=== PATIENT | female | born 1945 | race Caucasian/White ===

== ENCOUNTER 2018-05-11 11:10 | Emergency (ER) | payer MEDICARE, BC ==
[~2018-05-11] VITALS: Ht 152.4 cm; Wt 71.8 kg
[2018-05-11 11:10] VITALS: Ht 152.4 cm; Wt 71.8 kg
[~2018-05-11 11:10] MED LIST: LEVAQUIN500 MG PO; PRINIVIL20 MG PO; ZOCOR20 MG PO
[2018-05-11] MEDS ORDERED: COZAAR25 MG (11:19)
[2018-05-11] MEDS ORDERED: PROTONIX20 MG PO (11:19)
[2018-05-11] MEDS ORDERED: PLAVIX75 MG PO (11:19)
[2018-05-11] MEDS ORDERED: ASPIRIN81 MG PO (11:20)
[2018-05-11 11:43] LABS: BASOPHILS 0.5 % (0-2); EOSINOPHILS 2.1 % (0-7); HEMOGLOBIN 13.5 g/dL (12-16); IMMATURE GRANULOCYTES 0.2 % (0-5); LYMPHOCYTES 17.7 % (15-50); MCH 31.4 pg (26.0-34.0); MCHC 34.6 g/dL (31.0-37.0); MCV 90.7 fL (80.0-100.0); MEAN PLATELET VOLUME 9.8 fL (7.4-10.4); NEUTROPHILS 69.5 % (40-80); PLATELET COUNT 243 10x3/uL (130-400); RDW 12.2 % (11.5-14.5); WBC 5.8 10x3/uL (4.8-10.8)
[2018-05-11 11:51] LABS: APTT 53.4 SECONDS (22.8-39.4); INR 1.03 (0.85-1.17)
[2018-05-11 12:05] LABS: ALBUMIN 3.8 g/dL (3.4-5.0); ALKALINE PHOSPHATASE 82 U/L (46-116); ALT (SGPT) 23 U/L (10-68); BILIRUBIN - TOTAL 0.46 mg/dL (0.2-1.3); CALC OSMOLALITY 268 mosm/kg (275-300); CALCIUM 8.8 mg/dL (8.5-10.1); CHLORIDE - SERUM 98 mmol/L (98-107); CREATININE - SERUM 0.8 mg/dL (0.6-1.3); GLUCOSE 97 mg/dL (74-106); POTASSIUM - SERUM 3.7 mmol/L (3.5-5.1); PROTEIN - SERUM 7.6 g/dL (6.4-8.2); SODIUM 134 mmol/L (136-145); UREA NITROGEN 16 mg/dL (7-18); eGFR NON AFRICAN AMERICAN 74 mL/min (90-120)
[2018-05-11 12:06] LABS: CKMB 4.9 U/L (0.0-3.6); CREATINE KINASE 141 UL (21-215); MAGNESIUM - SERUM 1.9 mg/dL (1.8-2.4); TROPONIN-I < 0.017 ng/mL (0.000-0.060)
[2018-05-11 13:52] VITALS: BP 180/89
--- NOTE | 2018-05-14 11:18 | CN ---
PATIENT NAME:ESTER ANDREW MEDICAL RECORD: [id number] : 41 LOCATION:D.ER ADMIT DATE: ACCOUNT: [id number] CONSULTING PHYSICIAN: ANTONY BACA MD REFERRING PHYSICIAN: SHERRY LESTER MD DATE OF CONSULTATION: 05/11/2018 CARDIOLOGY CONSULTATION ADMITTING DIAGNOSES: 1. Angina. 2. Coronary artery disease. 3. Percutaneous transluminal coronary angioplasty stent at [facility] in January. 4. Hypertension. 5. Gastroesophageal reflux disease. HISTORY OF PRESENT ILLNESS: Mrs. Andrew presents with ongoing chest discomfort. She had chest discomfort. She presented to [facility] here in . She had cardiac catheterization and PTCA stent in January. She has continued to have episodes of chest discomfort. Really nothing has worsened and her chest has persisted. She has seen the physicians again at the [facility], they are treating her for GERD, this has not made a difference in the discomfort. With minimal exertion, she has significant chest discomfort. Her EKG is normal. PHYSICAL EXAMINATION: GENERAL APPEARANCE: Well-nourished, well-developed, appears stated age. Level of distress, comfortable. PSYCHIATRIC: Mental status, alert, normal affect. Orientation, oriented to time, place and person. EYES: Lids and conjunctiva, noninjected. No discharge, no pallor. ENT: Lips, teeth, gums, normal dentition. Oropharynx, no cyanosis, no pallor. NECK: Carotid arteries, bilateral normal upstroke, no bruits, no thrills. JUGULAR VEINS: No jugular venous pressure or distention. CERVICAL LYMPH NODES: Nontender, nonenlarged. THYROID: Not enlarged. Nontender. No nodules. LUNGS: Respiratory effort, unlabored. CHEST: Normal curvature. No thoracic deformity. No chest wall tenderness. Percussion, resonant. Auscultation, clear. No wheezes, no rales, no rhonchi. CARDIOVASCULAR: Precordial exam, nondisplaced. No heaves or pericardial thrills. Rate and rhythm, regular. Heart sounds, normal S1, normal S2. No S3, no gallop, no rub. Systolic murmur, not heard. Diastolic murmur, not heard. EXTREMITIES: No cyanosis, no edema. Peripheral pulses, full and equal in all extremities, except as noted. No bruits appreciated. ABDOMEN: Soft, nondistended. Normal aorta. No bruit. Nontender. No masses. Liver, nontender, no hepatomegaly. Spleen, nontender, no splenomegaly. MUSCULOSKELETAL: No joint tenderness. No joint swelling. No erythema. NEUROLOGICAL: Normal gait, normal strength, normal tone. SKIN: Warm and dry. OVERALL IMPRESSION: Ongoing anginal symptomatology. At this time, she needs repeat cardiac catheterization to reevaluate her angina. She is okay to go home today. She is pain free now. She will take it easy for the next 2 days. We will plan for cardiac catheterization as an outpatient on Sunday morning at 8:30 CONSULT REPORT [id number] ESTER ANDREW a.m. 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
== END 2018-05-11 13:53 | disposition home or self-care (01) ==
LOC: D.ER 11:10
PROVIDERS: Family Medicine
DX: R07.9 Chest pain, unspecified (principal); I10 Essential (primary) hypertension